=== PATIENT | female | born 1960 | race Two or more races ===

== ENCOUNTER 2016-12-19 17:52 | Emergency (ER) | payer OTHER ==
--- NOTE | ~2016-12-19 | CR72 ---
[facility] A Service of [facility] RADIOLOGY TEXT RESULTS PATIENT: WILLI DO LOCATION: [facility] : 64 UNIT #: [id number] AGE: [address]: Ryann Spencer MD SEX: F ORDER DR: [id number] [facility] [address] [place], [place] [address] [id number] E MR#: [id number] Acc #: [id number] NAME: WILLI DO : 1960 SEX: F STUDY DATE/TIME: 12/19/2016 20:05 UNIT: [facility] ROOM: STUDY DESCRIPTION: CR Chest Single View Portable Attending Physician: Ryann Spencer M.D. Ordering Physician: Ryann Spencer M.D. Primary Care Physician: Nino Trivedi Aprn MEDICAL IMAGING REPORT This report is preliminary unless electronic signature is present EXAM Single view of the chest dated 12/19/2016 COMPARISON None HISTORY Cough for 2 weeks, mid back pain. FINDINGS Single view of the chest was obtained. A single AP portable view of the chest shows both lungs to be clear. The heart is normal in size. The mediastinal contour is normal. No significant bone abnormalities are seen. IMPRESSION Normal portable chest. Dictated by... Khadijah Hawkins M.D. THIS IS AN ELECTRONICALLY VERIFIED REPORT Khadijah Hawkins M.D. at 12/20/2016 9:04 PM CPR/yarelis TD: 12/20/2016 08:32 JOB #: [id number] MEDICAL IMAGING REPORT Page 1 of 1 COPY
== END 2016-12-19 21:20 | disposition home or self-care (01) ==
LOC: CED 17:52
DX: J20.9 Acute bronchitis, unspecified (principal); I10 Essential (primary) hypertension; J45.909 Unspecified asthma, uncomplicated; E78.5 Hyperlipidemia, unspecified; Z90.49 Acquired absence of other specified parts of digestive tract; Z88.0 Allergy status to penicillin; Z88.8 Allergy status to other drugs, medicaments and biological substances
CPT/HCPCS: 71010; 94640; 99283